=== PATIENT | female | born 1945 | race Caucasian/White ===

== ENCOUNTER 2022-06-27 17:02 | Emergency (ER) | payer MEDICARE | END 2022-06-27 19:00 | disposition home or self-care (01) | LOC: ERS 17:02 | DX: S33.5XXA Sprain of ligaments of lumbar spine, initial encounter (principal); I10 Essential (primary) hypertension; W11.XXXA Fall on and from ladder, initial encounter | CPT/HCPCS: 72131; 72170 ==